=== PATIENT | male | born 1985 | race Caucasian/White ===

== ENCOUNTER 2021-02-27 18:51 | Emergency (ER) | payer OTHER, BC ==
[~2021-02-27] VITALS: Ht 160 cm; Wt 86.2 kg
[~2021-02-27 18:51] MED LIST: ALBU90I INH; ALBU90OI INH; AZIT250 PO; CEPH500 PO; CIPR500 PO; CODACE30 PO; DOXY100 PO; HYDACE5 PO; OXYACE5T PO; PRED20 PO; PROM25 PO; RXCODACET PO; SULTRIDS PO; TOBDEXOPSU OP
[2021-02-27] MEDS ORDERED: IBU800 MG PO (19:15)
[2021-02-27] MEDS ORDERED: LIDO700A20 TOP (19:15)
[2021-02-27] MEDS ORDERED: CYCL10 PO (19:15)
== END 2021-02-27 20:07 | disposition home or self-care (01) ==
LOC: ER 18:51
DX: S39.012A Strain of muscle, fascia and tendon of lower back, initial encounter (principal); Z79.51 Long term (current) use of inhaled steroids; Z79.52 Long term (current) use of systemic steroids; Z79.899 Other long term (current) drug therapy; V49.40XA Driver injured in collision with unspecified motor vehicles in traffic accident, initial encounter; Y92.410 Unspecified street and highway as the place of occurrence of the external cause
CPT/HCPCS: 72100; 99283-25; A9270; J1885